=== PATIENT | female | born 1995 | race Caucasian/White ===

== ENCOUNTER 2023-07-06 14:40 | Observation (INO) | payer OTHER ==
[~2023-07-06] VITALS: Ht 175.3 cm; Wt 89.8 kg
[2023-07-06 14:50] VITALS: BP 121/57; PULSE 80; RESP 18; TEMP 97.4; O2SAT 99
[2023-07-06] MEDS ORDERED: CALCIUM (15:29)
== END 2023-07-06 16:05 | disposition home or self-care (01) ==
LOC: MLD 14:40
PROVIDERS: ADMIT Obstetrics & Gynecology; ATTEND Obstetrics & Gynecology
DX: O26.892 Other specified pregnancy related conditions, second trimester (principal); R10.32 Left lower quadrant pain; Z3A.21 21 weeks gestation of pregnancy
CPT/HCPCS: G0378